=== PATIENT | male | born 1995 | race Hispanic/Latino ===

== ENCOUNTER 2016-09-29 19:31 | Observation (INO) | payer MEDICAID, OTHER ==
[2016-09-29 19:35] VITALS: BMI 32.1
[2016-09-29] MEDS ORDERED: Promethazine/Cod 6.25mg-10mg/5ml Syr UD PO STA (19:38)
[2016-09-29] MEDS: Albuterol-Ipratrop 3 mg / 0.5 (3 ml) UD IH SCH ×3 (20:00→20:15)
[2016-09-29 20:03] LABS: ADD MANUAL DIFF? NO
[2016-09-29 20:10] LABS: VENOUS BLOOD GAS BASE EXCESS 0.8 mmol/L (0.0-2.0); VENOUS BLOOD PH 7.37 (7.32-7.43)
[2016-09-29 20:17] LABS: ALB/GLOB RATIO 1.4 (1.1-1.8); ALKALINE PHOSPHATASE 90 U/L (38-133); ALT/SGPT 64 U/L (7-56); AST/SGOT 39 U/L (15-59); BILIRUBIN,TOTAL 0.8 mg/dL (0.2-1.3); BLOOD UREA NITROGEN 27 mg/dL (7-21); CALCIUM 9.5 mg/dL (8.4-10.5); CARBON DIOXIDE 25 mmol/L (21-33); CHLORIDE 100 mmol/L (98-107); GFR AFRICAN-AMERICAN > 60; GLUCOSE,RANDOM 99 mg/dL (70-110); POTASSIUM 3.9 mmol/L (3.6-5.0); SODIUM 139 mmol/L (132-148); TOTAL PROTEIN 7.9 g/dL (5.8-8.3)
[2016-09-29 20:19] LABS: BASO # 0.04 K/mm3 (0.0-2.0); BASO % 0.5 % (0.0-3.0); EOS # 0.2 (0.0-0.7); EOS % 2.2 % (1.5-5.0); GRAN # 4.47 (1.4-6.5); GRAN % 55.1 % (50.0-68.0); HEMATOCRIT 50.5 % (42.0-52.0); LYMPH # 2.5 (1.2-3.4); LYMPH % 30.5 % (22.0-35.0); MEAN CELL VOLUME 86.9 fL (80.0-105.0); MEAN CORPUSCULAR HEMOGLOBIN 29.9 pg (25.0-35.0); MEAN CORPUSCULAR HGB CONC 34.5 g/dl (31.0-37.0); MEAN PLATELET VOLUME 9.7 fl (7.0-11.0); MONO % 11.7 % (1.0-6.0); PLATELET COUNT 302 10^3/uL (120.0-450.0); RED CELL DISTRIBUTION WIDTH 13.4 % (11.5-14.5); WHITE BLOOD COUNT 8.1 10^3/ul (4.5-11.0)
[2016-09-29 20:30] LABS: TROPONIN I 0.01 ng/mL
[2016-09-29] MEDS: Sodium Chloride 0.9% 1,000 ML IV SCH (20:46)
[2016-09-29 21:14] VITALS: PULSE 89
--- NOTE | 2016-09-29 22:05 | ED PDOC ---
Arrival/HPI - General Chief Complaint: Respiratory Distress Time Seen by Provider: 09/29/16 19:35 Historian: Patient - History of Present Illness Narrative History of Present Illness (Text): 09/29/16 22:02 José Garvin is a 21 year old male, with a history of asthma and hypertension, presents to the emergency department complaining of shortness of breath and 1 episode of vomiting since earlier today. Reports that symptoms are similar to previous asthmatic episodes. States he was hospitalized for asthma in the past, but never intubated. Denies fever, chills, headache, dizziness, abdominal pain, diarrhea, urinary symptoms, or any other complaints at this time. Time/Duration: 24 hours Symptom Onset: Gradual Symptom Course: Unchanged Severity Level: Moderate Past Medical History - Provider Review Nursing Documentation Reviewed: Yes - Cardiac Hx Hypertension: Yes - Pulmonary Hx Asthma: Yes - Integumentary Other/Comment: tattoos - Musculoskeletal/Rheumatological Hx Falls: No - Psychiatric Hx Substance Use: No - Surgical History Hx Orthopedic Surgery: Yes Other/Comment: skateboard accident at 8 or [age] yrs old, fx r ft casted, left hip sx with pin hip slipped out of its socket - Anesthesia Hx Anesthesia: Yes Hx Anesthesia Reactions: No Hx Malignant Hyperthermia: No Family/Social History - Physician Review Nursing Documentation Reviewed: Yes Family/Social History: No Known Family HX Smoking Status: Never Smoked Hx Alcohol Use: No Hx Substance Use: No Allergies/Home Meds Allergies/Adverse Reactions: Allergies No Known Allergies Allergy (Verified 09/29/16 19:33) Home Medications: Home Meds Medication Instructions Recorded Confirmed Guaifenesin [Adult Tussin Chest 1 tsp PO Q6H PRN 06/18/16 06/18/16 Congestion] Review of Systems - Physician Review All systems were reviewed & negative as marked: Yes - Review of Systems Constitutional: Normal. absent: Fatigue, Fevers Respiratory: SOB. absent: Cough, Sputum Cardiovascular: absent: Chest Pain Gastrointestinal: Nausea, Vomiting. absent: Diarrhea Neurological: Normal. absent: Headache, Dizziness Psychiatric: Normal Physical Exam Vital Signs Reviewed: Yes Vital Signs Temp Pulse Resp BP Pulse Ox 09/29/16 23:06 16 98 09/29/16 21:13 97.5 F L 89 18 178/94 H 98 09/29/16 21:04 18 100 09/29/16 19:40 23 98 09/29/16 19:39 148/116 H 09/29/16 19:35 99.9 F H 120 H 22 99 Temperature: Afebrile Blood Pressure: Hypertensive Pulse: Tachycardic Respiratory Rate: Normal Appearance: Positive for: Non-Toxic Pain Distress: None Mental Status: Positive for: Alert and Oriented X 3 - Systems Exam Head: Present: Atraumatic, Normocephalic Pupils: Present: PERRL Conjunctiva: Present: Normal Respiratory/Chest: Present: Wheezes (wheezing with stridor ) Cardiovascular: Present: Regular Rate and Rhythm, Normal S1, S2. No: Murmurs Abdomen: Present: Normal Bowel Sounds. No: Tenderness, Distention, Peritoneal Signs Upper Extremity: Present: Normal Inspection. No: Cyanosis, Edema Lower Extremity: Present: Normal Inspection. No: Edema Neurological: Present: GCS=15, CN II-XII Intact, Speech Normal Skin: Present: Warm, Dry, Normal Color. No: Rashes Psychiatric: Present: Alert, Oriented x 3, Normal Insight, Normal Concentration Medical Decision Making ED Course and Treatment: 09/29/16 22:08 Impression: A 21 year old male who presents to the ed complaining of shortness of breath and 1 episode of vomiting. Plan: -- EKG -- Labs, cardiac enzymes -- CXR -- Duoneb -- Levaquin -- Phenergan/Codeine -- Prednisone -- IV fluids -- Zofran -- Blood Culture Progress Notes: 09/29/16 22:15 EKG reviewed by me: NSR @ 94 bpm. Possible inferior infarct, age undetermined. Patient is still wheezing despite treatment in the emergency department. Case discussed with Dr. Hdez who is aware and agrees with the plan to admit patient to hospital for asthma exacerbation. Accepts patient under hospitalist service. - Lab Interpretations Microbiology Results: Microbiology Results 09/29/16 20:28 Blood-Venous Blood Culture - Preliminary NO GROWTH AFTER 24 HOURS 09/29/16 17:53 Blood-Venous Blood Culture - Preliminary NO GROWTH AFTER 24 HOURS Lab Results: 09/29/16 17:53 09/29/16 17:53 Lab Results 09/29/16 17:53: WBC 8.1, RBC 5.81, Hgb 17.4, Hct 50.5, MCV 86.9, MCH 29.9, MCHC 34.5, RDW 13.4, Plt Count 302, MPV 9.7, Gran % 55.1, Lymph % (Auto) 30.5, [place] % (Auto) 11.7 H, Eos % (Auto) 2.2, Baso % (Auto) 0.5, Gran # 4.47, Lymph # 2.5, [place] # 1.0 H, Eos # 0.2, Baso # 0.04, pO2 53, VBG pH 7.37, VBG pCO2 46.0, VBG HCO3 26.6, VBG Total CO2 28.0, VBG O2 Sat (Calc) 90.0 H, VBG Base Excess 0.8, VBG Potassium 3.9, Glucose 99, Lactate 2.2 H, FiO2 21.0, Sodium 138.0, Potassium 3.9, Chloride 103.0, Carbon Dioxide 25, Anion Gap 18, BUN 27 H, Creatinine 1.1, Est GFR ( Amer) > 60, Est GFR (Non-Af Amer) > 60, Random Glucose 99, Calcium 9.5, Total Bilirubin 0.8, AST 39, ALT 64 H, Alkaline Phosphatase 90, Lactate Dehydrogenase 512, Total Creatine Kinase 326 H, CK-MB ( CK-2) 1.4, CK-MB (CK-2) % Cancelled, Troponin I 0.01, Total Protein 7.9, Albumin 4.6, Globulin 3.3, Albumin/Globulin Ratio 1.4, Venous Blood Potassium 3.9 I have reviewed the lab results: Yes - RAD Interpretation Radiology Orders: 09/29/16 19:38 CHEST PORTABLE [RAD] Stat Conciliator: Radiologist - EKG Interpretation Interpreted by ED Physician: Yes Type: 12 lead EKG - Medication Orders Current Medication Orders: Discontinued Medications Albuterol/Ipratropium (Duoneb 3 Mg/0.5 Mg (3 Ml) Ud) 3 ml IH Q15M JOSHUA Last Admin: 09/30/16 11:02 Dose: 3 ML Amoxicillin/Clavulanate Potassium (Augmentin 875 Mg-125 Mg Tab) 1 tab PO Q12 JOSHUA PRN Reason: Protocol Last Admin: 09/30/16 10:31 Dose: 1 TAB Guaifenesin/Dextromethorphan (Robitussin Dm) 5 ml PO Q4H PRN PRN Reason: Cough Last Admin: 09/30/16 10:32 Dose: 5 ML Sodium Chloride (Sodium Chloride 0.9%) 1,000 mls @ 80 mls/hr IV .[id number] JOSHUA Last Admin: 09/30/16 10:00 Dose: 80 MLS/HR eMAR Start Stop Document 09/30/16 10:00 CLR (Rec: 09/30/16 12:15 CLR [id number]) Intravenous Solution Start Date 09/30/16 Start Time 10:00 Levofloxacin/Dextrose (Levaquin 750mg) 150 mls @ 100 mls/hr IVPB STAT STA Stop: 09/29/16 23:06 Last Admin: 09/29/16 22:55 Dose: 100 MLS/HR eMAR Start Stop Document 09/29/16 22:55 RENETTA (Rec: 09/29/16 23:06 [id number]) Intravenous Solution Start Date 09/29/16 Start Time 23:05 End Date 09/30/16 End time 00:35 Total Infusion Time 90 Methylprednisolone (Solu-Medrol) 125 mg IVP STAT STA Stop: 09/29/16 19:38 Last Admin: 09/29/16 19:59 Dose: 125 MG IVP Administration Document 09/29/16 19:59 [facility] (Rec: 09/29/16 20:00 [place] [id number]) Charges for Administration # of IVP Administrations 1 Ondansetron HCl (Zofran Inj) 4 mg IVP STAT STA Stop: 09/29/16 20:28 Last Admin: 09/29/16 20:58 Dose: 4 MG IVP Administration Document 09/29/16 20:58 [facility] (Rec: 09/29/16 21:00 [place] [id number]) Charges for Administration # of IVP Administrations 1 Ondansetron HCl (Zofran Inj) 4 mg IVP Q4H PRN PRN Reason: Nausea/Vomiting Pantoprazole Sodium (Protonix Ec Tab) 40 mg PO 0730,1630 [facility] Last Admin: 09/30/16 08:37 Dose: 40 MG Phenylephrine HCl (Jere-Synephrine 0.25% Nasal [place]) 0 ml NS Q4H PRN PRN Reason: Nasal congestion Promethazine HCl/Codeine (Phenergan/Codeine Oral Syrup) 5 ml PO ONCE STA Stop: 09/29/16 19:39 Last Admin: 09/29/16 20:00 Dose: - Scribe Statement The provider has reviewed the documentation as recorded by the Sacha Louis Provider Attestation: All medical record entries made by the Sacha were at my direction and personally dictated by me. I have reviewed the chart and agree that the record accurately reflects my personal performance of the history, physical exam, medical decision making, and the department course for this patient. I have also personally directed, reviewed, and agree with the discharge instructions and disposition. Disposition/Present on Arrival - Present on Arrival Any Indicators Present on Arrival: No History of DVT/PE: No History of Uncontrolled Diabetes: No Urinary Catheter: No History of Decub. Ulcer: No History Surgical Site Infection Following: None - Disposition Have Diagnosis and Disposition been Completed?: Yes Diagnosis: Asthma exacerbation Disposition: HOSPITALIZED Disposition Time: 22:05 Condition: GOOD
[2016-09-29] MEDS ORDERED: guaiFENesin DM 100 mg-10 mg/5 ml UD PO PRN (22:41)
--- NOTE | 2016-09-29 22:58 | CP.PCM.HP ---
<Berta Carrasquillo - Last Filed: 09/29/16 22:45> History of Present Illness - History of Present Illness History of Present Illness: 21 M with PMHx of asthma and HTN presents to [facility] ED with complaints of SOB, cough, and nausea. Pt reports that he began to feel sick this past monday with a fever of 101, productive cough with white phlegm and sore throat at which point he visited his PMD. Pt was found to be strep negative and was given rx for abx, and has been taking Motrin for his fever. He denied any sick contacts at home/work. Pt has been using his inhaler for asthma everyday this past week without relief of sob. Today, pt began to wheeze and experience tightness in his chest, and without further relief from inhaler, was instructed to come to [facility] ED by PMD. Pt was seen and examined. He admitted to mild sob, nasal congestion, and productive cough. Pt also noted nausea, however is no longer feeling nauseous. Pt also noted that his wheezing has improved with treatment in ED. Pt denied fever, chills, chest pains, palpitations, abdominal pains, n/v/ d/c or urinary symptoms. Pt noted that he began losing his voice earlier today after episode of nbnb emesis. PMHx: HTN, Asthma (intubated 2013, hospitalized 2015) PSHx: tonsillectomy, left hip pin SHx: Lives alone in [place], denied tobacco/etoh/illicit drug abuse FamHx: Noncontributory Meds: Review MAR Allergies: NKDA Present on Admission - Present on Admission Any Indicators Present on Admission: No History of DVT/PE: No History of Uncontrolled Diabetes: No Urinary Catheter: No Decubitus Ulcer Present: No Review of Systems - Review of Systems Review of Systems: as per HPI otherwise negative Past Patient History - Past Social History Smoking Status: Never Smoked - CARDIAC Hx Hypertension: Yes - PULMONARY Hx Asthma: Yes - INTEGUMENTARY Other/Comment: tattoos - MUSCULOSKELETAL/RHEUMATOLOGICAL Hx Falls: No - PSYCHIATRIC Hx Substance Use: No - SURGICAL HISTORY Hx Orthopedic Surgery: Yes Other/Comment: skateboard accident at 8 or [age] yrs old, fx r ft casted, left hip sx with pin hip slipped out of its socket - ANESTHESIA Hx Anesthesia: Yes Hx Anesthesia Reactions: No Hx Malignant Hyperthermia: No Meds Allergies/Adverse Reactions: Allergies Allergy/AdvReac Type Severity Reaction Status Date / Time No Known Allergies Allergy Verified 09/29/16 19:33 Physical Exam - Constitutional Appears: No Acute Distress - Head Exam Head Exam: ATRAUMATIC, NORMAL INSPECTION, NORMOCEPHALIC - Eye Exam Eye Exam: EOMI, Normal appearance, PERRL Pupil Exam: NORMAL ACCOMODATION, PERRL - ENT Exam ENT Exam: Mucous Membranes Moist - Expanded ENT Exam Expanded Throat exam: Tonsillar Erythema - Neck Exam Neck exam: Positive for: Tenderness - Respiratory Exam Respiratory Exam: Wheezes (minimal), NORMAL BREATHING PATTERN - Cardiovascular Exam Cardiovascular Exam: REGULAR RHYTHM, +S1, +S2 - GI/Abdominal Exam GI & Abdominal Exam: Normal Bowel Sounds, Soft. absent: Tenderness - Extremities Exam Extremities exam: Positive for: normal inspection - Neurological Exam Neurological exam: Alert, CN II-XII Intact, Normal Gait, Oriented x3, Reflexes Normal - Psychiatric Exam Psychiatric exam: Normal Affect, Normal Mood - Skin Skin Exam: Dry, Intact, Normal Color, Warm Results - Vital Signs Recent Vital Signs: Last Vital Signs Temp 97.5 F L 09/29/16 21:13 Pulse 89 09/29/16 21:13 Resp 18 09/29/16 21:13 BP 178/94 H 09/29/16 21:13 Pulse Ox 98 09/29/16 21:13 - Labs Result Diagrams: 09/29/16 17:53 09/29/16 17:53 Labs: Laboratory Results - last 24 hr 09/29/16 17:53 WBC 8.1 RBC 5.81 Hgb 17.4 Hct 50.5 MCV 86.9 MCH 29.9 MCHC 34.5 RDW 13.4 Plt Count 302 MPV 9.7 Gran % 55.1 Lymph % (Auto) 30.5 [place] % (Auto) 11.7 H Eos % (Auto) 2.2 Baso % (Auto) 0.5 Gran # 4.47 Lymph # 2.5 [place] # 1.0 H Eos # 0.2 Baso # 0.04 pO2 53 VBG pH 7.37 VBG pCO2 46.0 VBG HCO3 26.6 VBG Total CO2 28.0 VBG O2 Sat (Calc) 90.0 H VBG Base Excess 0.8 VBG Potassium 3.9 Sodium 139 Chloride 100 Glucose 99 Lactate 2.2 H FiO2 21.0 Potassium 3.9 Carbon Dioxide 25 Anion Gap 18 BUN 27 H Creatinine 1.1 Est GFR ( Amer) > 60 Est GFR (Non-Af Amer) > 60 Random Glucose 99 Calcium 9.5 Total Bilirubin 0.8 AST 39 ALT 64 H Alkaline Phosphatase 90 Lactate Dehydrogenase 512 Total Creatine Kinase 326 H CK-MB (CK-2) 1.4 CK-MB (CK-2) % Cancelled Troponin I 0.01 Total Protein 7.9 Albumin 4.6 Globulin 3.3 Albumin/Globulin Ratio 1.4 Venous Blood Potassium 3.9 Assessment & Plan - Assessment and Plan (Free Text) Assessment: 21 M with PMHx of asthma and HTN presents to [facility] ED with complaints of SOB, cough, and nausea. Admitted to Med/surg 1. Asthma Exacerbation, improved - duonebs, solumedrol in ED, no longer wheezing - continue to monitor and adjust as needed 2. Pharyngitis - Afebrile - Augmentin 3. HTN - currently stable - no longer needs home meds as per PMD - continue to monitor 4. Nausea - zofran 5. Nasal congestion - phenylephrine nasal spray 6. GI DVT ppx seen reviewed and discussed with attending <Santiago Hdez P - Last Filed: 10/09/16 20:17> Results - Vital Signs Recent Vital Signs: Last Vital Signs Temp 98.4 F 09/30/16 08:00 Pulse 89 09/30/16 08:12 Resp 18 09/30/16 08:00 BP 119/69 09/30/16 08:00 Pulse Ox 96 09/30/16 08:00 - Labs Result Diagrams: 09/30/16 08:15 09/30/16 08:15 Attending/Attestation - Attestation I have personally seen and examined this patient.: Yes I have fully participated in the care of the patient.: Yes I have reviewed all pertinent clinical information: Yes
[2016-09-29] MEDS ORDERED: Phenylephrine 0.25% Nasal Spray (15 ml) NS PRN (23:04)
[2016-09-29] MEDS: Amoxicillin-Clav 875-125 mg Tab PO SCH (23:22)
[2016-09-29 23:31] LABS: VENOUS BLOOD GAS BASE EXCESS 1.2 mmol/L (0.0-2.0); VENOUS BLOOD PH 7.39 (7.32-7.43)
[2016-09-30 00:37] VITALS: RESP 18
[2016-09-30] MEDS ORDERED: Pantoprazole 40 mg EC Tab PO SCH (07:30)
[2016-09-30] MEDS: Albuterol-Ipratrop 3 mg / 0.5 (3 ml) UD IH SCH ×2 (08:06→11:02)
[2016-09-30 08:28] VITALS: BP 119/69; TEMP 98.4; O2SAT 96
--- NOTE | 2016-09-30 08:30 | RAD ---
HISTORY: sob COMPARISON: 06/18/2016 FINDINGS: LUNGS: No active pulmonary disease. PLEURA: No significant pleural effusion identified, no pneumothorax apparent. CARDIOVASCULAR: Normal. OSSEOUS STRUCTURES: No significant abnormalities. VISUALIZED UPPER ABDOMEN: Normal. OTHER FINDINGS: None. IMPRESSION: No active disease.
[2016-09-30 08:37] LABS: ADD MANUAL DIFF? NO
[2016-09-30 08:39] LABS: BASO # 0.01 K/mm3 (0.0-2.0); BASO % 0.1 % (0.0-3.0); GRAN # 5.64 (1.4-6.5); GRAN % 78.1 % (50.0-68.0); HEMATOCRIT 48.7 % (42.0-52.0); LYMPH # 1.2 (1.2-3.4); MEAN CELL VOLUME 86.8 fL (80.0-105.0); MEAN CORPUSCULAR HEMOGLOBIN 29.9 pg (25.0-35.0); MEAN CORPUSCULAR HGB CONC 34.5 g/dl (31.0-37.0); MEAN PLATELET VOLUME 9.3 fl (7.0-11.0); MONO # 0.4 (0.1-0.6); MONO % 4.8 % (1.0-6.0); PLATELET COUNT 301 10^3/uL (120.0-450.0); RED CELL DISTRIBUTION WIDTH 13.4 % (11.5-14.5); WHITE BLOOD COUNT 7.2 10^3/ul (4.5-11.0)
[2016-09-30 08:59] LABS: BLOOD UREA NITROGEN 19 mg/dL (7-21); CALCIUM 9.2 mg/dL (8.4-10.5); CARBON DIOXIDE 24 mmol/L (21-33); CHLORIDE 105 mmol/L (98-107); GFR AFRICAN-AMERICAN > 60; GLUCOSE,RANDOM 131 mg/dL (70-110); POTASSIUM 4.4 mmol/L (3.6-5.0); SODIUM 140 mmol/L (132-148)
[2016-09-30] MEDS: Sodium Chloride 0.9% 1,000 ML IV SCH (10:00)
[2016-09-30] MEDS: Amoxicillin-Clav 875-125 mg Tab PO SCH (10:31)
--- NOTE | 2016-09-30 11:20 | CARD ---
APPROVED REPORT EKG Measurement Heart [id number] <Conclusion> Normal sinus rhythm Small q 3,F PRWP NSSTW changes Prolonged QTc
--- NOTE | 2016-09-30 12:58 | CP.PCM.DIS ---
<Chidi Robbins - Last Filed: 09/30/16 19:38> Provider - Provider Date of Admission: 09/29/16 22:31 Attending physician: Gilberto Clark MD Primary care physician: Adore Hobbs MD Time Spent in preparation of Discharge (in minutes): 45 Hospital Course - Lab Results Lab Results: Most Recent Lab Values WBC 7.2 10^3/ul (4.5-11.0) 09/30/16 08:15 RBC 5.61 10^6/uL (3.5-6.1) 09/30/16 08:15 Hgb 16.8 gm/dL (14.0-18.0) 09/30/16 08:15 Hct 48.7 % (42.0-52.0) 09/30/16 08:15 MCV 86.8 fL (80.0-105.0) 09/30/16 08:15 MCH 29.9 pg (25.0-35.0) 09/30/16 08:15 MCHC 34.5 g/dl (31.0-37.0) 09/30/16 08:15 RDW 13.4 % (11.5-14.5) 09/30/16 08:15 Plt Count 301 10^3/uL (120.0-450.0) 09/30/16 08:15 MPV 9.3 fl (7.0-11.0) 09/30/16 08:15 Gran % 78.1 % (50.0-68.0) H 09/30/16 08:15 Lymph % (Auto) 17.0 % (22.0-35.0) L 09/30/16 08:15 Iroquois % (Auto) 4.8 % (1.0-6.0) 09/30/16 08:15 Eos % (Auto) 0.0 % (1.5-5.0) L 09/30/16 08:15 Baso % (Auto) 0.1 % (0.0-3.0) 09/30/16 08:15 Gran # 5.64 (1.4-6.5) 09/30/16 08:15 Lymph # 1.2 (1.2-3.4) 09/30/16 08:15 Iroquois # 0.4 (0.1-0.6) 09/30/16 08:15 Eos # 0.0 (0.0-0.7) 09/30/16 08:15 Baso # 0.01 K/mm3 (0.0-2.0) 09/30/16 08:15 pO2 96 mm/Hg (30-55) H 09/29/16 23:24 VBG pH 7.39 (7.32-7.43) 09/29/16 23:24 VBG pCO2 44.0 (40-60) 09/29/16 23:24 VBG HCO3 26.6 mmol/l (21-28) 09/29/16 23:24 VBG Total CO2 28.0 mmol.L (22-28) 09/29/16 23:24 VBG O2 Sat (Calc) 98.9 % (40-65) H 09/29/16 23:24 VBG Base Excess 1.2 mmol/L (0.0-2.0) 09/29/16 23:24 VBG Potassium 3.8 mmol/L (3.6-5.2) 09/29/16 23:24 Sodium 139.0 mmol/L (132-148) 09/29/16 23:24 Chloride 107.0 mmol/L (98-107) 09/29/16 23:24 Glucose 137 mg/dl (75-110) H 09/29/16 23:24 Lactate 1.5 mmol/L (0.7-2.1) 09/29/16 23:24 FiO2 21.0 % 09/29/16 23:24 Sodium 140 mmol/L (132-148) 09/30/16 08:15 Potassium 4.4 mmol/L (3.6-5.0) 09/30/16 08:15 Chloride 105 mmol/L (98-107) 09/30/16 08:15 Carbon Dioxide 24 mmol/L (21-33) 09/30/16 08:15 Anion Gap 15 (10-20) 09/30/16 08:15 BUN 19 mg/dL (7-21) 09/30/16 08:15 Creatinine 0.7 mg/dL (0.5-1.4) 09/30/16 08:15 Est GFR ( Amer) > 60 09/30/16 08:15 Est GFR (Non-Af Amer) > 60 09/30/16 08:15 Random Glucose 131 mg/dL (70-110) H 09/30/16 08:15 Calcium 9.2 mg/dL (8.4-10.5) 09/30/16 08:15 Total Bilirubin 0.8 mg/dL (0.2-1.3) 09/29/16 17:53 AST 39 U/L (15-59) 09/29/16 17:53 ALT 64 U/L (7-56) H 09/29/16 17:53 Alkaline Phosphatase 90 U/L (38-133) 09/29/16 17:53 Lactate Dehydrogenase 512 U/L (333-699) 09/29/16 17:53 Total Creatine Kinase 326 U/L (35-230) H 09/29/16 17:53 CK-MB (CK-2) 1.4 ng/mL (0.0-3.6) 09/29/16 17:53 CK-MB (CK-2) % Cancelled 09/29/16 17:53 Troponin I 0.01 ng/mL 09/29/16 17:53 Total Protein 7.9 g/dL (5.8-8.3) 09/29/16 17:53 Albumin 4.6 g/dL (3.0-4.8) 09/29/16 17:53 Globulin 3.3 gm/dL 09/29/16 17:53 Albumin/Globulin Ratio 1.4 (1.1-1.8) 09/29/16 17:53 Venous Blood Potassium 3.8 mmol/L (3.6-5.2) 09/29/16 23:24 - Hospital Course Hospital Course: HPI: 21 M with PMHx of asthma and HTN presents to [facility] with complaints of SOB, cough, and nausea. Pt reports that he began to feel sick this past monday with a fever of 101, productive cough with white phlegm and sore throat at which point he visited his PMD. Pt was found to be strep negative and was given rx for abx, and has been taking Motrin for his fever. He denied any sick contacts at home/work. Pt has been using his inhaler for asthma everyday this past week without relief of sob. Today, pt began to wheeze and experience tightness in his chest, and without further relief from inhaler, was instructed to come to [facility] ED by PMD. Pt was seen and examined. He admitted to mild sob, nasal congestion, and productive cough. Pt also noted nausea, however is no longer feeling nauseous. Pt also noted that his wheezing has improved with treatment in ED. Pt denied fever, chills, chest pains, palpitations, abdominal pains, n/v/ d/c or urinary symptoms. Pt noted that he began losing his voice earlier today after episode of nbnb emesis. Course: Patient is a 21 y/o M with history of asthma who presented with SOB, cough, and nausea. An initial chest x-ray showed no active disease. An EKG was performed showing normal sinus rhythm. He was given duoneb treatments, IV Levaquin, and admitted to the hospital. Overnight he remained afebrile without leukocytosis and his symptoms improved. On further investigation he admitted to seasonal allergies and was not taking medication for this. Also, he has not been using his asthma inhaler due to having run out. He was determined medically stable for discharge. He was advised to: follow up with his primary care physician upon discharge; was discharged with scripts for Zyrtec, Proventil , and a Medrol dose pack; finish our home antibiotic course and take medications as prescribed; and if your condition worsens or new symptoms arise , please return to the emergency department. He verbalized understanding and was discharged home. This is a brief summary of the patient's stay at this facility. For more detail , please see patient's chart. - Date & Time of H&P Date of H&P: 09/29/16 Time of H&P: 22:45 Discharge Exam - Head Exam Head Exam: ATRAUMATIC, NORMAL INSPECTION, NORMOCEPHALIC - Eye Exam Eye Exam: Conjunctival injection, EOMI, PERRL. absent: Scleral icterus Pupil Exam: NORMAL ACCOMODATION, PERRL - ENT Exam ENT Exam: Mucous Membranes Moist. absent: Normal Exam (sinus drainage), Normal Oropharynx (erythematous with cobblestoning) - Neck Exam Neck exam: Normal Inspection - Respiratory Exam Respiratory Exam: Clear to PA & Lateral, NORMAL BREATHING PATTERN. absent: Rales, Rhonchi, Wheezes - Cardiovascular Exam Cardiovascular Exam: REGULAR RHYTHM, +S1, +S2. absent: Gallop, Rubs - GI/Abdominal Exam GI & Abdominal Exam: Normal Bowel Sounds, Soft. absent: Tenderness - Extremities Exam Extremities exam: normal capillary refill, normal inspection, pedal pulses present - Back Exam Back exam: NORMAL INSPECTION. absent: rash noted, tenderness - Neurological Exam Neurological exam: Alert, CN II-XII Intact, Oriented x3 - Psychiatric Exam Psychiatric exam: Normal Affect, Normal Mood - Skin Skin Exam: Dry, Intact, Normal Color, Warm Discharge Plan - Discharge Medications Prescriptions: Fluticasone Propionate [Aller-Shine] 1 spray NS Q4H PRN #1 spray.susp PRN Reason: Cough And Congestion Methylprednisolone [Medrol Dose Pack (21 tabs)] 4 mg PO DAILY #21 mg Albuterol Sulfate [Proair Hfa] 8.5 gm IH DAILY PRN #1 inh PRN Reason: Shortness Of Breath Cetirizine HCl [Zyrtec] 10 mg PO DAILY #30 tab.rapdis - Follow Up Plan Condition: GOOD Disposition: HOME/ ROUTINE Instructions: Asthma (DC), Asthma (GEN) Additional Instructions: You are medically stable for discharge. Please follow up with your primary care physician upon discharge. You are discharged with scripts for Zyrtec, Proventil, and a Medrol dose pack. Please finish our home antibiotic course and take medications as prescribed. If your condition worsens or new symptoms arise, please return to the emergency department. Referrals: Adore Hobbs MD [Primary Care Provider] - <Gilberto Clark - Last Filed: 09/30/16 22:32> Provider - Provider Date of Admission: 09/29/16 22:31 Attending physician: Gilberto Clark MD Primary care physician: Adore Hobbs MD Hospital Course - Lab Results Lab Results: Most Recent Lab Values WBC 7.2 10^3/ul (4.5-11.0) 09/30/16 08:15 RBC 5.61 10^6/uL (3.5-6.1) 09/30/16 08:15 Hgb 16.8 gm/dL (14.0-18.0) 09/30/16 08:15 Hct 48.7 % (42.0-52.0) 09/30/16 08:15 MCV 86.8 fL (80.0-105.0) 09/30/16 08:15 MCH 29.9 pg (25.0-35.0) 09/30/16 08:15 MCHC 34.5 g/dl (31.0-37.0) 09/30/16 08:15 RDW 13.4 % (11.5-14.5) 09/30/16 08:15 Plt Count 301 10^3/uL (120.0-450.0) 09/30/16 08:15 MPV 9.3 fl (7.0-11.0) 09/30/16 08:15 Gran % 78.1 % (50.0-68.0) H 09/30/16 08:15 Lymph % (Auto) 17.0 % (22.0-35.0) L 09/30/16 08:15 Iroquois % (Auto) 4.8 % (1.0-6.0) 09/30/16 08:15 Eos % (Auto) 0.0 % (1.5-5.0) L 09/30/16 08:15 Baso % (Auto) 0.1 % (0.0-3.0) 09/30/16 08:15 Gran # 5.64 (1.4-6.5) 09/30/16 08:15 Lymph # 1.2 (1.2-3.4) 09/30/16 08:15 Iroquois # 0.4 (0.1-0.6) 09/30/16 08:15 Eos # 0.0 (0.0-0.7) 09/30/16 08:15 Baso # 0.01 K/mm3 (0.0-2.0) 09/30/16 08:15 pO2 96 mm/Hg (30-55) H 09/29/16 23:24 VBG pH 7.39 (7.32-7.43) 09/29/16 23:24 VBG pCO2 44.0 (40-60) 09/29/16 23:24 VBG HCO3 26.6 mmol/l (21-28) 09/29/16 23:24 VBG Total CO2 28.0 mmol.L (22-28) 09/29/16 23:24 VBG O2 Sat (Calc) 98.9 % (40-65) H 09/29/16 23:24 VBG Base Excess 1.2 mmol/L (0.0-2.0) 09/29/16 23:24 VBG Potassium 3.8 mmol/L (3.6-5.2) 09/29/16 23:24 Sodium 139.0 mmol/L (132-148) 09/29/16 23:24 Chloride 107.0 mmol/L (98-107) 09/29/16 23:24 Glucose 137 mg/dl (75-110) H 09/29/16 23:24 Lactate 1.5 mmol/L (0.7-2.1) 09/29/16 23:24 FiO2 21.0 % 09/29/16 23:24 Sodium 140 mmol/L (132-148) 09/30/16 08:15 Potassium 4.4 mmol/L (3.6-5.0) 09/30/16 08:15 Chloride 105 mmol/L (98-107) 09/30/16 08:15 Carbon Dioxide 24 mmol/L (21-33) 09/30/16 08:15 Anion Gap 15 (10-20) 09/30/16 08:15 BUN 19 mg/dL (7-21) 09/30/16 08:15 Creatinine 0.7 mg/dL (0.5-1.4) 09/30/16 08:15 Est GFR ( Amer) > 60 09/30/16 08:15 Est GFR (Non-Af Amer) > 60 09/30/16 08:15 Random Glucose 131 mg/dL (70-110) H 09/30/16 08:15 Calcium 9.2 mg/dL (8.4-10.5) 09/30/16 08:15 Total Bilirubin 0.8 mg/dL (0.2-1.3) 09/29/16 17:53 AST 39 U/L (15-59) 09/29/16 17:53 ALT 64 U/L (7-56) H 09/29/16 17:53 Alkaline Phosphatase 90 U/L (38-133) 09/29/16 17:53 Lactate Dehydrogenase 512 U/L (333-699) 09/29/16 17:53 Total Creatine Kinase 326 U/L (35-230) H 09/29/16 17:53 CK-MB (CK-2) 1.4 ng/mL (0.0-3.6) 09/29/16 17:53 CK-MB (CK-2) % Cancelled 09/29/16 17:53 Troponin I 0.01 ng/mL 09/29/16 17:53 Total Protein 7.9 g/dL (5.8-8.3) 09/29/16 17:53 Albumin 4.6 g/dL (3.0-4.8) 09/29/16 17:53 Globulin 3.3 gm/dL 09/29/16 17:53 Albumin/Globulin Ratio 1.4 (1.1-1.8) 09/29/16 17:53 Venous Blood Potassium 3.8 mmol/L (3.6-5.2) 09/29/16 23:24 Attending/Attestation - Attestation I have personally seen and examined this patient.: Yes I have fully participated in the care of the patient.: Yes I have reviewed all pertinent clinical information, including history, physical exam and plan: Yes Notes (Text): 09/30/16 22:29 21 year old male with past medical history of asthma who presented with shortness of breath secondary to mild asthma exacerbation. This improved with duonebs and steroids. He also has possible pharyngitis on antibiotics. His symptoms have improved overnight. He is discharged home to follow up with his pmd. Continue with albuterol prn, medrol dosepack and antibiotics as prescribed. Gilberto Clark MD Hospitalist.
== END 2016-09-30 14:34 | disposition home or self-care (01) ==
LOC: ED 19:31 → ERH 22:31 → 3RSO 09-30 00:16
PROVIDERS: ADMIT Hospitalist; ATTEND Internal Medicine
DX: J45.901 Unspecified asthma with (acute) exacerbation (principal); I10 Essential (primary) hypertension; R00.0 Tachycardia, unspecified; R11.0 Nausea; J02.9 Acute pharyngitis, unspecified; R40.2412 Glasgow coma scale score 13-15, at arrival to emergency department; Z87.81 Personal history of (healed) traumatic fracture
CPT/HCPCS: 36415; 71010; 80048; 80053; 82550; 82553; 82803; 83615; 84484; 85025; 87040; 93005; 94640; 96361; 96365; 96375; 99283; G0378; J2405; J2930; J7040

== ENCOUNTER 2017-05-10 03:18 | Emergency (ER) | payer MEDICAID, OTHER ==
[2017-05-10 03:28] VITALS: BP 160/70; PULSE 87; TEMP 98.2; O2SAT 99; BMI 28.7
[2017-05-10] MEDS ORDERED: Albuterol-Ipratrop 3 mg / 0.5 (3 ml) UD IH STA (04:04)
--- NOTE | 2017-05-10 04:10 | ED PDOC ---
Arrival/HPI <Ashok Hills - Last Filed: 05/10/17 05:02> - General Historian: Patient <ClarisaRachael - Last Filed: 05/11/17 01:43> - General Chief Complaint: Shortness Of Breath Time Seen by Provider: 05/10/17 04:00 - History of Present Illness Narrative History of Present Illness (Text): Patient is a 21 year old male who presents to the ED complaining of SOB w/ a non -productive cough for about 3 days. Patient stated that 3 days ago he began to have a cough with SOB that has gotten progressively worse. He states that he normally gets these symptoms around this time every year. Patient presented last year with similar symptoms and was treated for acute asthma exacerbation and bronchitis. Patient used his inhaler about 11-12 times over the past 3 days. He normally only needs the inhaler about once per week. He also unsuccessfully tried Nyquil and flonase to relive his symptoms. Associated symptoms include chills, sneezing, mucous vomit, dry cough, "stuffy nose", sinus pressure, body aches, wheezing, and sore throat. He denies any fever, chest pain, difficulty swallowing, Abdominal Pain, urinary symptoms or changes in bowel habits. ROS POSITIVES: chills, sneezing, nausea, mucous vomit, dry cough, "stuffy nose", sinus pressure, maxillary tenderness, body aches, wheezing, and sore throat NEGATIVES: fever, chest pain, difficulty swallowing, Abdominal Pain, urinary symptoms or changes in bowel habits, particle or dust exposure. PMHx: Denies PSHx: Hip surgery, Right thumb surgery, Tonsillectomy Allergies: NKDA Social Hx: Denies Tobacco, alcohol, or illicit drug use. Works as a [employer]. Patient is a Family Hx: Unknown - Patient is adopted Meds: Ventolin IH. 05/10/17 04:06 05/10/17 04:50 05/10/17 04:53 (Rachael Mckenna) Past Medical History - Provider Review Nursing Documentation Reviewed: Yes - Cardiac Hx Hypertension: Yes - Pulmonary Hx Asthma: Yes - Neurological Hx Neurological Disorder: No - HEENT Hx HEENT Disorder: No - Renal Hx Renal Disorder: No - Endocrine/Metabolic Hx Endocrine Disorders: No - Hematological/Oncological Hx Blood Disorders: No - Integumentary Other/Comment: tattoos - Musculoskeletal/Rheumatological Hx Falls: No - Gastrointestinal Hx Gastrointestinal Disorders: No - Genitourinary/Gynecological Hx Genitourinary Disorders: No - Psychiatric Hx Psychophysiologic Disorder: Yes Hx Anxiety: Yes Hx Post Traumatic Stress Disorder: Yes Hx Substance Use: No - Surgical History Hx Orthopedic Surgery: Yes Other/Comment: skateboard accident at 8 or [age] yrs old, fx r ft casted, left hip sx with pin hip slipped out of its socket - Anesthesia Hx Anesthesia: Yes Hx Anesthesia Reactions: No Hx Malignant Hyperthermia: No <Rachael Mckenna - Last Filed: 05/11/17 01:43> Family/Social History - Physician Review Nursing Documentation Reviewed: Yes Family/Social History: No Known Family HX Smoking Status: Never Smoked Hx Alcohol Use: No Hx Substance Use: No <Rachael Mckenna - Last Filed: 05/11/17 01:43> Allergies/Home Meds <Ashok Hills - Last Filed: 05/10/17 05:02> <Rachael Mckenna - Last Filed: 05/11/17 01:43> Allergies/Adverse Reactions: Allergies No Known Allergies Allergy (Verified 05/10/17 03:28) Home Medications: Home Meds Medication Instructions Recorded Confirmed Albuterol HFA [Ventolin HFA 90 1 puff IH DAILY 05/10/17 05/10/17 mcg/actuation (8 g)] Review of Systems - Physician Review All systems were reviewed & negative as marked: Yes (ROS as per HPI) - Review of Systems Eyes: Normal Respiratory: SOB, Cough Cardiovascular: Normal Gastrointestinal: Normal <Rachael Mckenna - Last Filed: 05/11/17 01:43> Physical Exam Vital Signs Reviewed: Yes Temperature: Afebrile Blood Pressure: Hypertensive Pulse: Regular Respiratory Rate: Normal Appearance: Positive for: Non-Toxic Pain Distress: None Mental Status: Positive for: Alert and Oriented X 3 - Systems Exam Head: Present: Atraumatic, Normocephalic Extroacular Muscles: Present: EOMI Conjunctiva: Present: Normal Ears: Present: NORMAL TM, Normal Canal. No: Erythema Mouth: Present: Moist Mucous Membranes Pharnyx: Present: Normal Nose (External): Present: Atraumatic Neck: Present: Normal Range of Motion. No: Lymphadenopathy Respiratory/Chest: Present: Clear to Auscultation. No: Respiratory Distress, Accessory Muscle Use, Wheezes, Rales, Rhonchi, Tender to Palpation Cardiovascular: Present: Regular Rate and Rhythm, Normal S1, S2. No: Murmurs Abdomen: Present: Normal Bowel Sounds. No: Tenderness, Distention, Rebound, Guarding Neurological: Present: GCS=15, Speech Normal Skin: Present: Warm, Dry, Normal Color Lymphatic: No: Cervical Adenopathy Psychiatric: Present: Alert, Oriented x 3, Normal Affect, Normal Mood <Rachael Mckenna - Last Filed: 05/11/17 01:43> Vital Signs Temp Pulse Resp BP Pulse Ox 05/10/17 03:30 18 05/10/17 03:29 98.2 F 87 19 160/70 H 99 05/10/17 03:27 98.2 F 87 19 160/70 H 99 Medical Decision Making <Ashok Hills - Last Filed: 05/10/17 05:02> <Rachael Mckenna - Last Filed: 05/11/17 01:43> ED Course and Treatment: Patient Seen With Resident: In agreement with resident note which contains more details about the patient. Patient was seen and evaluated with resident. Came up with plan and treatment together. A 21 year old male with shortness of breath and nonproductive cough. Additional HPI as noted by resident. No acute findings on physical exam. Ordered chest xray , labs, rapid strep and influenza. Will give Duoneb and Solumedrol. (Ashok Hills) SOB and cough 2/2 to Acute Asthma Exacerbation 2/2 Viral URI -CXR -CMP/CBC -Rapid Strep -Rapid Influenza -Duoneb -Solumedrol -Zofran for N/V Reassess and Disposition 05/10/17 04:43 05/10/17 04:52 (Rachael Mckenna) - Lab Interpretations Lab Results: 05/10/17 04:40 05/10/17 04:40 Lab Results 05/10/17 04:40: Grp A Beta Strep Ag Negative 05/10/17 04:40: Influenza Typ A,B (EIA) Negative for flu a/b 05/10/17 04:40: Sodium 141, Potassium 4.1, Chloride 108 H, Carbon Dioxide 24, Anion Gap 13, BUN 27 H, Creatinine 0.8, Est GFR ( Amer) > 60, Est GFR ( Non-Af Amer) > 60, Random Glucose 91, Calcium 9.8, Total Bilirubin 0.5, AST 39, ALT 75 H, Alkaline Phosphatase 102, Total Protein 6.9, Albumin 4.0, Globulin 2.8 , Albumin/Globulin Ratio 1.4 05/10/17 04:40: WBC 7.8, RBC 5.60, Hgb 16.7, Hct 48.6, MCV 86.8, MCH 29.8, MCHC 34.4, RDW 12.9, Plt Count 313, MPV 8.8 - RAD Interpretation Radiology Orders: 05/10/17 04:04 CHEST TWO VIEWS (PA/LAT) [RAD] Stat - Medication Orders Current Medication Orders: Discontinued Medications Albuterol/Ipratropium (Duoneb 3 Mg/0.5 Mg (3 Ml) Ud) 3 ml IH STAT STA Stop: 05/10/17 04:05 Last Admin: 05/10/17 04:46 Dose: 3 ml Methylprednisolone (Solu-Medrol) 125 mg IVP STAT STA Stop: 05/10/17 04:05 Last Admin: 05/10/17 04:46 Dose: 125 mg IVP Administration Document 05/10/17 04:46 SC (Rec: 05/10/17 04:47 [id number] Charges for Administration # of IVP Administrations 1 Ondansetron HCl (Zofran Inj) 4 mg IVP STAT STA Stop: 05/10/17 04:46 Last Admin: 05/10/17 04:47 Dose: 4 mg IVP Administration Document 05/10/17 04:47 SC (Rec: 05/10/17 04:47 [id number] Charges for Administration # of IVP Administrations 1 - Scribe Statement The provider has reviewed the documentation as recorded by the Scribe <Ashok Hills - Last Filed: 05/10/17 05:02> <Rachael Mckenna - Last Filed: 05/11/17 01:43> - Scribe Statement Rodrigo Tadeo Provider Scribe Attestation: All medical record entries made by the Scribe were at my direction and personally dictated by me. I have reviewed the chart and agree that the record accurately reflects my personal performance of the history, physical exam, medical decision making, and the department course for this patient. I have also personally directed, reviewed, and agree with the discharge instructions and disposition. (Ashok Hills) Disposition/Present on Arrival <Ashok Hills - Last Filed: 05/10/17 05:02> - Present on Arrival Any Indicators Present on Arrival: No History of DVT/PE: No History of Uncontrolled Diabetes: No Urinary Catheter: No History of Decub. Ulcer: No History Surgical Site Infection Following: None - Disposition Have Diagnosis and Disposition been Completed?: Yes Disposition Time: 23:30 <Rachael Mckenna - Last Filed: 05/11/17 01:43> - Disposition Diagnosis: Asthma exacerbation Disposition: HOME/ ROUTINE Condition: IMPROVED Discharge Instructions (ExitCare): Asthma (ED) Prescriptions: Amoxicillin 875 mg PO BID #20 tab Fexofenadine/Pseudoephedrine [Leelee-D 24 Hour Tablet] 1 each PO DAILY #14 tab.er.24h predniSONE [predniSONE Tab] 20 mg PO TID #15 tab Referrals: Brenda Naik MD [Primary Care Provider] - Follow up with primary Forms: [employer] (Icelandic)
[2017-05-10 05:27] LABS: HEMATOCRIT 48.6 % (42.0-52.0); MEAN CELL VOLUME 86.8 fl (80.0-105.0); MEAN CORPUSCULAR HEMOGLOBIN 29.8 pg (25.0-35.0); MEAN CORPUSCULAR HGB CONC 34.4 g/dl (31.0-37.0); MEAN PLATELET VOLUME 8.8 fl (7.0-11.0); RED CELL DISTRIBUTION WIDTH 12.9 % (11.5-14.5); WHITE BLOOD COUNT 7.8 10^3/ul (4.5-11.0)
[2017-05-10 05:28] LABS: ALB/GLOB RATIO 1.4 (1.1-1.8); BILIRUBIN,TOTAL 0.5 mg/dL (0.2-1.3); CALCIUM 9.8 mg/dL (8.4-10.5); GFR AFRICAN-AMERICAN > 60; GLUCOSE,RANDOM 91 mg/dL (70-110); TOTAL PROTEIN 6.9 g/dL (5.8-8.3)
[2017-05-10 05:36] LABS: ALKALINE PHOSPHATASE 102 U/L (38-126); ALT/SGPT 75 U/L (7-56); AST/SGOT 39 U/L (17-59); BLOOD UREA NITROGEN 27 mg/dL (7-21); CARBON DIOXIDE 24 mmol/L (21-33); CHLORIDE 108 mmol/L (98-107); POTASSIUM 4.1 mmol/L (3.6-5.0); SODIUM 141 mmol/L (132-148)
[2017-05-10 06:14] VITALS: RESP 18
--- NOTE | 2017-05-10 09:12 | RAD ---
HISTORY: SOB COMPARISON: 09/29/2016 TECHNIQUE: Chest PA and lateral FINDINGS: LUNGS: No active pulmonary disease. PLEURA: No significant pleural effusion identified. No pneumothorax apparent. CARDIOVASCULAR: Normal. OSSEOUS STRUCTURES: No significant abnormalities. VISUALIZED UPPER ABDOMEN: Normal. OTHER FINDINGS: None. IMPRESSION: No active disease. No significant interval change compared to the prior examination(s).
== END 2017-05-10 06:27 | disposition home or self-care (01) ==
LOC: ED 03:18
DX: J45.901 Unspecified asthma with (acute) exacerbation (principal)
CPT/HCPCS: 71020; 80053; 85027; 87070; 87430; 87804; 96374; 96375; 99284; J2405; J2930

== ENCOUNTER 2017-06-15 00:59 | Emergency (ER) | payer OTHER ==
[2017-06-15 01:17] VITALS: BMI 30.1
--- NOTE | 2017-06-15 01:19 | ED PDOC ---
Arrival/HPI - General Time Seen by Provider: 06/15/17 01:07 Historian: Patient - History of Present Illness Narrative History of Present Illness (Text): 06/15/17 01:19 José Garvin is a 21 year old male, with a history of asthma and hypertension, who presents to the emergency department complaining of shortness of breath since yesterday. Patient states symptoms are consistent with his usual asthma symptoms and notes he recently ran out of his inhaler. Patient denies any fever , chills, chest pain, nausea, vomiting, diarrhea, urinary symptoms, back pain, neck pain, headache, dizziness, or any other complaints. Symptom Onset: Gradual Symptom Course: Unchanged Activities at Onset: Light Context: Home Past Medical History - Provider Review Nursing Documentation Reviewed: Yes - Cardiac Hx Hypertension: Yes - Pulmonary Hx Asthma: Yes - Neurological Hx Neurological Disorder: No - HEENT Hx HEENT Disorder: No - Renal Hx Renal Disorder: No - Endocrine/Metabolic Hx Endocrine Disorders: No - Hematological/Oncological Hx Blood Disorders: No - Integumentary Other/Comment: tattoos - Musculoskeletal/Rheumatological Hx Falls: No - Gastrointestinal Hx Gastrointestinal Disorders: No - Genitourinary/Gynecological Hx Genitourinary Disorders: No - Psychiatric Hx Psychophysiologic Disorder: Yes Hx Anxiety: Yes Hx Post Traumatic Stress Disorder: Yes Hx Substance Use: No - Surgical History Hx Orthopedic Surgery: Yes Other/Comment: skateboard accident at 8 or [age] yrs old, fx r ft casted, left hip sx with pin hip slipped out of its socket - Anesthesia Hx Anesthesia: Yes Hx Anesthesia Reactions: No Hx Malignant Hyperthermia: No Family/Social History - Physician Review Nursing Documentation Reviewed: Yes Family/Social History: Unknown Family HX Smoking Status: Never Smoked Hx Alcohol Use: No Hx Substance Use: No Allergies/Home Meds Allergies/Adverse Reactions: Allergies No Known Allergies Allergy (Verified 06/15/17 01:16) Home Medications: Home Meds Medication Instructions Recorded Confirmed Albuterol HFA [Ventolin HFA 90 1 puff IH DAILY 05/10/17 05/10/17 mcg/actuation (8 g)] Review of Systems - Physician Review All systems were reviewed & negative as marked: Yes - Review of Systems Constitutional: Normal. absent: Fevers Eyes: Normal ENT: Normal Respiratory: SOB. absent: Cough Cardiovascular: Normal. absent: Chest Pain Gastrointestinal: Normal. absent: Abdominal Pain, Diarrhea, Nausea, Vomiting Genitourinary Male: Normal. absent: Dysuria, Frequency, Hematuria, Urinary Output Changes Musculoskeletal: Normal. absent: Back Pain, Neck Pain Skin: Normal. absent: Rash Neurological: Normal. absent: Headache, Dizziness Endocrine: Normal Hemo/Lymphatic: Normal Psychiatric: Normal Physical Exam Vital Signs Reviewed: Yes Vital Signs Temp Pulse Resp BP Pulse Ox 06/15/17 02:33 84 18 142/84 98 06/15/17 02:27 18 98 06/15/17 01:16 98.0 F 76 18 135/93 H 99 06/15/17 01:10 18 99 Temperature: Afebrile Blood Pressure: Normal Pulse: Regular Respiratory Rate: Normal Appearance: Positive for: Well-Appearing, Non-Toxic, Comfortable Pain Distress: None Mental Status: Positive for: Alert and Oriented X 3 - Systems Exam Head: Present: Atraumatic, Normocephalic Pupils: Present: PERRL Extroacular Muscles: Present: EOMI Conjunctiva: Present: Normal Mouth: Present: Moist Mucous Membranes Neck: Present: Normal Range of Motion Respiratory/Chest: Present: Wheezes (Wheezing bilaterally). No: Respiratory Distress, Accessory Muscle Use Cardiovascular: Present: Regular Rate and Rhythm, Normal S1, S2. No: Murmurs Abdomen: Present: Normal Bowel Sounds. No: Tenderness, Distention, Peritoneal Signs Back: Present: Normal Inspection Upper Extremity: Present: Normal Inspection. No: Cyanosis, Edema Lower Extremity: Present: Normal Inspection. No: Edema Neurological: Present: GCS=15, CN II-XII Intact, Speech Normal Skin: Present: Warm, Dry, Normal Color. No: Rashes Psychiatric: Present: Alert, Oriented x 3, Normal Insight, Normal Concentration Medical Decision Making ED Course and Treatment: 06/15/17 01:19 Impression: 21 year old male complaining of shortness of breath since yesterday. Differential Diagnosis included but are not limited to: asthma Plan: -- Duoneb -- Reassess and disposition Prior Visits: Notes and results from previous visits were reviewed. On 05/10/2017, pt was seen in the Emergency department for shortness of breath and cough. Pt was d/c home. Progress Notes: 06/15/17 02:25 On re-evaluation, patient feels better and is in no acute distress. I have discussed the results and plan with the patient, who expresses understanding. Patient in agreement with plan to be discharged home. Patient is stable for discharge. Patient was instructed to follow up with physician or return if symptoms worsen or new concerning symptoms arise. - Medication Orders Current Medication Orders: Discontinued Medications Albuterol/Ipratropium (Duoneb 3 Mg/0.5 Mg (3 Ml) Ud) 3 ml IH ONCE STA Stop: 06/15/17 01:21 Last Admin: 06/15/17 01:25 Dose: 3 ml Prednisone (Prednisone Tab) 40 mg PO ONCE STA Stop: 06/15/17 02:28 - Scribe Statement The provider has reviewed the documentation as recorded by the Sacha Varma Provider Scribe Attestation: All medical record entries made by the Scribe were at my direction and personally dictated by me. I have reviewed the chart and agree that the record accurately reflects my personal performance of the history, physical exam, medical decision making, and the department course for this patient. I have also personally directed, reviewed, and agree with the discharge instructions and disposition. Disposition/Present on Arrival - Present on Arrival Any Indicators Present on Arrival: No History of DVT/PE: No History of Uncontrolled Diabetes: No Urinary Catheter: No History Surgical Site Infection Following: None - Disposition Have Diagnosis and Disposition been Completed?: Yes Diagnosis: Asthma exacerbation Disposition: HOME/ ROUTINE Disposition Time: 02:25 Patient Plan: Discharge Patient Problems: Current Active Problems Problem Status Onset Asthma exacerbation Acute Condition: GOOD Discharge Instructions (ExitCare): Asthma (ED) Additional Instructions: Meds as prescribed/avoid cold air/weather exposure/follow up with your doctor Prescriptions: predniSONE [Prednisone] 40 mg PO DAILY #10 tab RX: Albuterol HFA [Ventolin HFA 90 mcg/actuation (8 g)] 2 puff IH [id number] PRN # 1 puff PRN Reason: Wheezing
[2017-06-15 01:20] VITALS: RESP 18; TEMP 98
[2017-06-15] MEDS ORDERED: Albuterol-Ipratrop 3 mg / 0.5 (3 ml) UD IH STA (01:20)
[2017-06-15 02:28] VITALS: O2SAT 98
[2017-06-15 02:34] VITALS: BP 142/84; PULSE 84
--- NOTE | 2017-06-15 17:55 | CARD ---
APPROVED REPORT EKG Measurement Heart [id number] <Conclusion> Normal sinus rhythm Normal ECG
== END 2017-06-15 02:50 | disposition home or self-care (01) ==
LOC: ED 00:59
DX: J45.901 Unspecified asthma with (acute) exacerbation (principal); I10 Essential (primary) hypertension